=== PATIENT | male | born 1995 | race Caucasian/White ===

== ENCOUNTER 2020-11-12 14:21 | Emergency (ER) | payer OTHER ==
[2020-11-12 14:34] VITALS: BP 119/65; PULSE 104; TEMP 97.6; BMI 25.7
[2020-11-12] MEDS ORDERED: guaiFENesin/CODEINE 10 ML UNIT-DOSE CUPS PO ONE (16:04)
[2020-11-12] MEDS ORDERED: IBUPROFEN 600 MG TABLET (FP) PO ONE ×2 (16:04→16:25)
[2020-11-12] MEDS ORDERED: guaiFENesin/CODEINE 5 ML UNIT-DOSE CUPS PO ONE (16:26)
== END 2020-11-12 19:31 | disposition home or self-care (01) ==
LOC: JER 14:21
DX: M94.0 Chondrocostal junction syndrome [Tietze] (principal)
CPT/HCPCS: 71046-TC-FY; 71101-TC-LT-FY; 93005; 93010; 99285-25

== ENCOUNTER 2021-04-24 13:56 | Emergency (ER) | payer OTHER ==
[2021-04-24 14:07] VITALS: BP 118/73; PULSE 108; TEMP 98.4; BMI 25.8
== END 2021-04-24 15:33 | disposition home or self-care (01) ==
LOC: JER 13:56
DX: B34.9 Viral infection, unspecified (principal)
CPT/HCPCS: 87804; 99283-25; C9803; U0003; U0005

== ENCOUNTER 2022-03-06 09:36 | Emergency (ER) | payer OTHER ==
[2022-03-06] MEDS ORDERED: IBUPROFEN 400 MG TABLET (FP) PO ONE ×2 (10:01→11:56)
[2022-03-06] MEDS ORDERED: ONDANSETRON *ODT* 4 MG TABLET SL ONE (10:01)
[2022-03-06 10:15] VITALS: BP 109/60; RESP 19; TEMP 99.3; BMI 24.2
[2022-03-06] MEDS ORDERED: ONDANSETRON *ODT* 4 MG TABLET ONE (11:55)
[2022-03-06 13:03] VITALS: PULSE 96
== END 2022-03-06 14:15 | disposition home or self-care (01) ==
LOC: JER 09:36
DX: U07.1 COVID-19 (principal)
CPT/HCPCS: 0241U-QW; 99283-25; Q0162

== ENCOUNTER 2022-05-04 20:50 | Emergency (ER) | payer OTHER ==
[2022-05-04 20:56] VITALS: BP 111/60; PULSE 120; RESP 20; TEMP 98.2; BMI 24.2
== END 2022-05-04 22:29 | disposition left against medical advice (07) ==
LOC: JER 20:50
DX: R10.9 Unspecified abdominal pain (principal)
CPT/HCPCS: 99281-25

== ENCOUNTER 2022-05-29 17:00 | Emergency (ER) | payer OTHER ==
[2022-05-29 18:10] VITALS: BP 108/68; PULSE 98; RESP 20; TEMP 98; BMI 24.2
== END 2022-05-29 19:35 | disposition home or self-care (01) ==
LOC: JERFT 17:00
DX: S99.922A Unspecified injury of left foot, initial encounter (principal); Y99.8 Other external cause status
CPT/HCPCS: 73630-TC-LT; 99283-25

== ENCOUNTER 2023-02-24 18:34 | Emergency (ER) | payer OTHER ==
[2023-02-24 18:40] VITALS: BP 112/62; PULSE 112; RESP 18; TEMP 98.1; BMI 24.2
[2023-02-24 20:25] LABS: BASO % 0.4 % (0-2.0); EOS % 0.6 % (0-4.5); HEMATOCRIT 41.5 % (35.4-49); HEMOGLOBIN 13.8 GM/dL (11.7-16.9); MCH 28.5 pg (25.7-33.7); MCHC 33.3 g/dl (32.0-35.9); MEAN CELL VOLUME 85.4 fl (80-96); MEAN PLT VOLUME 8.5 fl (7.5-11.1); MONO % 6.3 % (3.8-10.2); NEUT % 54.7 % (42.8-82.8); PLATELET COUNT 213 10^3/uL (134-434); RBC 4.86 M/mm3 (4.00-5.60)
[2023-02-24 20:51] LABS: ALBUMIN 4.2 g/dl (3.4-5.0); BLOOD UREA NITROGEN 11.6 mg/dL (7-18)
[2023-02-24 20:54] LABS: CREATININE 0.9 mg/dL (0.55-1.3)
[2023-02-24 20:55] LABS: BILIRUBIN,TOTAL 0.7 mg/dL (0.2-1)
[2023-02-24 20:56] LABS: TOT PROT 7.4 g/dl (6.4-8.2)
== END 2023-02-24 22:31 | disposition home or self-care (01) ==
LOC: JERFT 18:34 → JER 18:34 → JERFT 22:31
DX: R06.02 Shortness of breath (principal); R00.2 Palpitations; Z20.822 Contact with and (suspected) exposure to COVID-19
CPT/HCPCS: 0241U-QW; 36415; 71046-TC-FY; 71275-TC; 80053; 85025; 93005; 93010; 99285-25; Q9967

== ENCOUNTER 2023-02-28 04:31 | Emergency (ER) | payer OTHER ==
[2023-02-28 04:41] VITALS: BMI 24.2
[2023-02-28 05:57] LABS: BASO % 0.3 % (0-2.0); EOS % 0.8 % (0-4.5); HEMATOCRIT 39.3 % (35.4-49); HEMOGLOBIN 12.8 GM/dL (11.7-16.9); LYMPH % 33.1 % (8-40); MCH 27.8 pg (25.7-33.7); MCHC 32.7 g/dl (32.0-35.9); MEAN CELL VOLUME 85.1 fl (80-96); MEAN PLT VOLUME 8.8 fl (7.5-11.1); MONO % 12.4 % (3.8-10.2); NEUT % 53.4 % (42.8-82.8); PLATELET COUNT 174 10^3/uL (134-434); RBC 4.62 M/mm3 (4.00-5.60); WHITE BLOOD COUNT 5.7 K/mm3 (4.0-10.0)
[2023-02-28 06:16] LABS: POTASSIUM 3.2 mmol/L (3.5-5.1)
[2023-02-28 06:18] LABS: ALBUMIN 3.8 g/dl (3.4-5.0); CALCIUM 8.2 mg/dL (8.5-10.1)
[2023-02-28 06:19] LABS: BLOOD UREA NITROGEN 10.8 mg/dL (7-18)
[2023-02-28 06:22] LABS: CREATININE 0.9 mg/dL (0.55-1.3)
[2023-02-28 06:23] LABS: BILIRUBIN,TOTAL 0.2 mg/dL (0.2-1); TOT PROT 6.8 g/dl (6.4-8.2)
[2023-02-28] MEDS ORDERED: SODIUM CHLORIDE 0.9% 500 ML INFUS.BAG IV ONE (06:30)
[2023-02-28] MEDS ORDERED: POTASSIUM CHLORIDE ORAL LIQUID 20 MEQ/15 ML PO ONE (06:31)
[2023-02-28] MEDS ORDERED: POTASSIUM CHLORIDE ORAL LIQUID 20 MEQ/15 ML ONE (06:37)
[2023-02-28 07:53] VITALS: BP 102/59; PULSE 89; RESP 15; TEMP 97.5
== END 2023-02-28 08:14 | disposition home or self-care (01) ==
LOC: JER 04:31
DX: R00.2 Palpitations (principal); R06.02 Shortness of breath; R07.89 Other chest pain; R09.81 Nasal congestion; R05.9 Cough, unspecified; R19.7 Diarrhea, unspecified; R43.8 Other disturbances of smell and taste; R50.9 Fever, unspecified; U07.1 COVID-19
CPT/HCPCS: 36415; 80053; 83735; 84436; 84439; 84443; 84484; 85025; 85379; 87635; 93005; 93010; 99284-25

== ENCOUNTER 2023-03-22 09:31 | Emergency (ER) | payer OTHER ==
[2023-03-22 10:25] VITALS: BMI 24.2
[2023-03-22] MEDS ORDERED: SODIUM CHLORIDE 0.9% 500 ML INFUS.BAG IV ONE (10:56)
[2023-03-22 11:51] LABS: BASO % 0.1 % (0-2.0); EOS % 0.3 % (0-4.5); HEMATOCRIT 39.3 % (35.4-49); HEMOGLOBIN 12.6 GM/dL (11.7-16.9); LYMPH % 19.4 % (8-40); MCH 27.4 pg (25.7-33.7); MEAN CELL VOLUME 85.8 fl (80-96); MEAN PLT VOLUME 8.8 fl (7.5-11.1); MONO % 7.9 % (3.8-10.2); NEUT % 72.3 % (42.8-82.8); PLATELET COUNT 168 10^3/uL (134-434); RBC 4.58 M/mm3 (4.00-5.60); RDW 13.4 % (11.9-15.9); WHITE BLOOD COUNT 7.9 K/mm3 (4.0-10.0)
[2023-03-22 12:15] LABS: POTASSIUM 3.6 mmol/L (3.5-5.1)
[2023-03-22 12:17] LABS: CALCIUM 8.6 mg/dL (8.5-10.1)
[2023-03-22 12:18] LABS: ALBUMIN 3.8 g/dl (3.4-5.0); MAGNESIUM 2.1 mg/dL (1.8-2.4)
[2023-03-22 12:20] LABS: CREATININE 0.9 mg/dL (0.55-1.3)
[2023-03-22 12:22] LABS: TOT PROT 6.8 g/dl (6.4-8.2)
[2023-03-22 12:23] LABS: BILIRUBIN,TOTAL 0.3 mg/dL (0.2-1)
[2023-03-22 13:28] VITALS: TEMP 98.1
[2023-03-22 13:42] LABS: PH,URINE 6.5 (5.0-8.0); URINE APPEARANCE CLEAR; URINE BILIRUBIN NEGATIVE (NEGATIVE); URINE COLOR YELLOW; URINE GLUCOSE (UA) 1+ (NEGATIVE); URINE KETONE NEGATIVE (NEGATIVE); URINE LEUK ESTERASE NEGATIVE (NEGATIVE); URINE NITRITE NEGATIVE (NEGATIVE); URINE PROTEIN NEGATIVE (NEGATIVE); URINE UROBILINOGEN 0.2 mg/dL (0.2-1.0)
[2023-03-22 13:46] LABS: COCAINE, UR NEGATIVE (NEGATIVE); URINE AMPHETAMINES NEGATIVE (NEGATIVE)
[2023-03-22 13:47] LABS: METHADONE, UR NEGATIVE (NEGATIVE); OPIATES, URI NEGATIVE (NEGATIVE); PHENCYCLIDINE,URINE NEGATIVE (NEGATIVE); URINE BENZODIAZEPINES NEGATIVE (NEGATIVE)
[2023-03-22 13:49] LABS: URINE BARBITURATES NEGATIVE (NEGATIVE)
[2023-03-22 14:20] VITALS: BP 130/72; PULSE 100; RESP 20
== END 2023-03-22 14:29 | disposition home or self-care (01) ==
LOC: JER 09:31
DX: R00.2 Palpitations (principal); R53.1 Weakness
CPT/HCPCS: 36415; 71045-TC-FY; 80053; 80307; 81003; 83735; 84439; 84443; 84484; 85025; 93005; 93010; 93308; 99285-25

== ENCOUNTER 2023-08-28 15:01 | Emergency (ER) | payer OTHER ==
[2023-08-28 15:21] VITALS: BP 121/63; PULSE 92; RESP 18; TEMP 98; BMI 25.0
[2023-08-28] MEDS: KETOROLAC TROMETHAMINE 30 MG/1 ML VIAL IM ONE (15:53)
[2023-08-28] MEDS: ACETAMINOPHEN 500 MG TABLET (FP) PO ONE (15:53)
[2023-08-28] MEDS: LIDOCAINE 4% PATCH TP ONE (15:54)
[2023-08-28] MEDS ORDERED: ACETAMINOPHEN 500 MG TABLET (FP) ONE (15:55)
[2023-08-28] MEDS ORDERED: LIDOCAINE 4% PATCH TP ONE (15:55)
[2023-08-28] MEDS ORDERED: KETOROLAC TROMETHAMINE 30 MG/1 ML VIAL ONE (15:55)
[2023-08-28] MEDS ORDERED: LIDOCAINE PATCH REMOVAL MC SCH (22:00)
== END 2023-08-28 16:21 | disposition home or self-care (01) ==
LOC: JERFT 15:01
PROC: 3E0233Z Introduction of Anti-inflammatory into Muscle, Percutaneous Approach (ICD-10-PCS; principal; 2023-08-28)
DX: M54.2 Cervicalgia (principal); M25.511 Pain in right shoulder; M62.838 Other muscle spasm
CPT/HCPCS: 99284-25

== ENCOUNTER 2023-08-31 19:48 | Emergency (ER) | payer OTHER ==
[2023-08-31 19:56] VITALS: BP 101/62; PULSE 103; RESP 18; TEMP 98.3; BMI 29.8
[2023-08-31] MEDS ORDERED: ACETAMINOPHEN 325 MG TABLET (FP) ONE (21:44)
[2023-08-31] MEDS ORDERED: LIDOCAINE 4% PATCH TP ONE (21:44)
[2023-08-31] MEDS ORDERED: diazePAM 2 MG TABLET ONE (21:45)
[2023-08-31] MEDS: diazePAM 2 MG TABLET PO ONE (21:49)
[2023-08-31] MEDS: LIDOCAINE 4% PATCH TP ONE (21:49)
[2023-08-31] MEDS: ACETAMINOPHEN 500 MG TABLET (FP) PO ONE (21:50)
[2023-08-31] MEDS ORDERED: LIDOCAINE PATCH REMOVAL MC ONE (22:00)
== END 2023-08-31 22:52 | disposition home or self-care (01) ==
LOC: JER 19:48 → JERFT 19:48
DX: S16.1XXA Strain of muscle, fascia and tendon at neck level, initial encounter (principal); X50.9XXA Other and unspecified overexertion or strenuous movements or postures, initial encounter
CPT/HCPCS: 99283-25